=== PATIENT | female | born 1990 | race Caucasian/White ===

== ENCOUNTER 2017-02-05 23:33 | Emergency (ER) | payer OTHER ==
[2017-02-06 01:20] LABS: BASOPHIL % 0.4 % (0-2); PLATELET COUNT 237 x10^3mcL (130-400); RED CELL DISTRIBUTION WIDTH 14.2 % (11.5-14.5)
[2017-02-06 01:30] LABS: CALCIUM 8.7 mg/dL (8.5-10.1); CARBON DIOXIDE 30.1 mmol/L (21-32); CHLORIDE SERUM 103 mmol/L (98-107); CREATININE SERUM 0.9 mg/dL (0.6-1.0); GFR1 > 60 mL/min; GLUCOSE SERUM 104 mg/dL (74-106); POTASSIUM SERUM 3.7 mmol/L (3.5-5.1); SODIUM SERUM 141 mmol/L (136-145)
[2017-02-06 01:35] LABS: ALBUMIN 3.7 g/dL (3.4-5.0); ALKALINE PHOSPHATASE 67 U/L (46-116); ALT/SGPT 17 U/L (14-59); AST/SGOT 13 U/L (15-37); BILIRUBIN TOTAL 0.21 mg/dL (0.20-1.00); TOTAL PROTEIN, SERUM 7.2 g/dL (6.4-8.2)
[2017-02-06 03:19] VITALS: BP 99/55
== END 2017-02-06 03:19 | disposition home or self-care (01) ==
LOC: ED 23:33
PROVIDERS: Emergency Medicine
DX: N93.8 Other specified abnormal uterine and vaginal bleeding (principal); Z86.2 Personal history of diseases of the blood and blood-forming organs and certain disorders involving the immune mechanism
CPT/HCPCS: 36415

== ENCOUNTER 2018-03-01 12:23 | Emergency (ER) | payer OTHER ==
[~2018-03-01] VITALS: Ht 167.6 cm; Wt 79.0 kg
[2018-03-01 12:30] VITALS: Ht 167.6 cm; Wt 79.0 kg
[2018-03-01 14:10] LABS: microscopic required? NO
[2018-03-01 14:21] LABS: UA SPECIFIC GRAVITY 1.015 (1.005-1.035); urine erythrocyte NEGATIVE (NEGATIVE)
[2018-03-01 15:51] VITALS: BP 103/63
== END 2018-03-01 15:51 | disposition home or self-care (01) ==
LOC: ED 12:23
PROVIDERS: Emergency Medicine
DX: G43.909 Migraine, unspecified, not intractable, without status migrainosus (principal)
CPT/HCPCS: J1885; J2765; J3030; J7030

== ENCOUNTER 2018-05-30 14:37 | Emergency (ER) | payer OTHER ==
[~2018-05-30] VITALS: Ht 167.6 cm; Wt 78.2 kg
[2018-05-30 14:59] VITALS: Ht 167.6 cm; Wt 78.2 kg
[2018-05-30 16:29] VITALS: BP 113/70
== END 2018-05-30 18:42 | disposition left against medical advice (07) ==
LOC: ED 14:37
DX: R51 Headache (principal); H57.11 Ocular pain, right eye; R11.10 Vomiting, unspecified; H53.8 Other visual disturbances; M41.9 Scoliosis, unspecified; Z91.013 Allergy to seafood
CPT/HCPCS: J1885; J2270; J2765

== ENCOUNTER 2018-09-10 22:04 | Emergency (ER) | payer OTHER ==
[~2018-09-10] VITALS: Ht 167.6 cm; Wt 82.1 kg
[2018-09-10 22:40] VITALS: Ht 167.6 cm; Wt 82.1 kg
[2018-09-10 23:56] LABS: BASOPHIL % 0.5 % (0-2); PLATELET COUNT 216 x10^3mcL (130-400)
[2018-09-10 23:59] LABS: RED CELL DISTRIBUTION WIDTH 15.3 % (11.5-14.5)
[2018-09-11 00:37] VITALS: BP 123/87
== END 2018-09-11 00:37 | disposition home or self-care (01) ==
LOC: ED 22:04
PROVIDERS: Emergency Medicine
DX: O20.0 Threatened abortion (principal); O26.891 Other specified pregnancy related conditions, first trimester; R10.30 Lower abdominal pain, unspecified; M54.5 Low back pain; Z3A.01 Less than 8 weeks gestation of pregnancy
CPT/HCPCS: 36415

== ENCOUNTER 2018-12-21 20:17 | Emergency (ER) | payer OTHER ==
[~2018-12-21] VITALS: Ht 167.6 cm; Wt 82.6 kg
[2018-12-21 20:23] VITALS: BP 101/66; Ht 167.6 cm; Wt 82.6 kg
== END 2018-12-21 20:46 | disposition home or self-care (01) ==
LOC: ED 20:17
DX: O99.512 Diseases of the respiratory system complicating pregnancy, second trimester (principal); J02.9 Acute pharyngitis, unspecified; H92.03 Otalgia, bilateral; R59.0 Localized enlarged lymph nodes; Z3A.20 20 weeks gestation of pregnancy; Z91.013 Allergy to seafood